=== PATIENT | female | born 1975 | race Caucasian/White ===

== ENCOUNTER 2017-04-10 07:47 | Emergency (ER) | payer BC ==
[2017-04-10 07:56] VITALS: BP 144/70; BMI 38.0
--- NOTE | 2017-04-10 08:32 | DR.GENAD ---
HPI - PCP Primary Care Physician: nfd - HPI Comment HPI Comment: No hx trauma or overuse, pt feels symptoms as 'pressure' just left of midline in upper lumbar area - Complaint/Symptoms Chief Complaint:: PT C/O LEFT MID BACK PAIN AND " IT FEELS LIKE SOMETHING IS GROWING AND NORMAL MOVEMENTS AND I HAVE A PRESSURE LIKE PAIN".. Self Treatment fo Chief Complaint: TYLENOL, MOTRIN - Source History Provided: Patient - Mode of Arrival Mode of Arrival: Ambulatory - Timing Onset of Chief Complaint: 04/08/17 PMH - PMH Past Medical History: No Past Medical History Comment: No hx back pain or injury Past Surgical History: Yes Past Surgical History Comment: TUBAL - Family History History of Family Medical Conditions: No - Social History Does patient currently use any type of tobacco product: No Have you used tobacco products in the last 12 months: No Type of Tobacco Use: None Does any household member use tobacco: No Alcohol Use: None Do you use any recreational Drugs:: No Lives With: Family Lives Where: Home - infectious screening In the last 2 months have you had wt loss of >10#?: NO Have you had fever, night sweats or hemotysis?: No Have you traveled outside the country in the last 6 months?: No Isolation: Standard ROS - Review of Systems Constitutional: No Symptoms Reported Eyes: No Symptoms Reported ENTM: No Symptoms Reported Respiratoy: No Symptoms Reported Cardiovascular: No Symptoms Reported Gastrointestinal/Abdominal: No Symptoms Reported Genitourinary: No Symptoms Reported. negative: See HPI, Discharge, Dysuria, Frequency, Hematuria, Pain, Bleeding, Other Neurological: negative: Tingling, Weakness, Problems Walking Musculoskeletal: See HPI, Back Pain PE - Vital Signs Vitals: Temperature 97.7 F Pulse Rate 84 Respiratory Rate 18 Blood Pressure 144/70 O2 Sat by Pulse Oximetry 99 - General Limitations: No Limitations General Appearance: Alert, In No Apparent Distress - Head Head Exam: Normal Inspection, Atraumatic - Eyes Eye exam: Normal Appearance - ENT ENT Exam: Normal Exam - Neck Neck Exam: Normal Inspection, Full ROM, Trachea Midline - Chest Chest Inspection: Normal Inspection, Symmetric Chest Wall Rise - Respiratory Respiratory Exam: Bilateral Clear to Auscultation - Cardiovascular Cardiovascular Exam: Regular Rate, Normal Rhythm - Abdominal Exam Abdominal Exam: Normal Bowel Sounds, Soft - Extremities Extremities Exam: Normal Inspection, Full ROM, Normal Capillary Refill. negative: Calf Tenderness - Back Back Exam: Normal Inspection, Full ROM, Paraspinal Tenderness. negative: Tenderness, (L) CVA Tenderness, Muscle Spasm, Vertebral Tenderness, Rashes, (R) Straight Leg Raise, (L) Straight Leg Raise - Neurologic Neurological Exam: Alert, Oriented X3, Normal Gait, Reflexes Normal. negative: Motor Sensory Deficit - Psychiatric Psychiatric Exam: Normal Affect, Normal Mood - Skin Skin Exam: Warm, Dry, Intact. negative: Rash Course - Treatment Treatment: Reviewed Xray findings with patient. Minimal Xrays done as patient quite concerned re: radiation exposure. Pt remains concerned that something's seriously wrong with her. Pt declines offered CT scan, fearful of addtl radiation today, states she'll come back for CT and asks what delay is appropriate for reimaging. I did tell her that CT today would be okay but she still wants to wait--I then told her 1 month should be more than enough time to avoid problems of repeated Xray exposure. Pt wants her kidneys 'checked out' and asks for UA which was ordered. ROR - Labs Reviewed Laboratory Results Reviewed?: Yes (UA with 1+ glucose, pt wants to check sugar at home, declines fingerstick h) Laboratory: Specimen Type Clean catch urine 04/10/17 09:50 Urine Color Yellow (YELLOW) 04/10/17 09:50 Urine Appearance Clear (CLEAR) 04/10/17 09:50 Urine pH 7.0 (5.0 - 8.0) 04/10/17 09:50 Ur Specific [place] 1.015 (1.000-1.030) 04/10/17 09:50 Urine Protein Negative (NEGATIVE) 04/10/17 09:50 Urine Glucose (UA) 1+ (NEGATIVE) 04/10/17 09:50 Urine Ketones Negative (NEGATIVE) 04/10/17 09:50 Urine Occult Blood Negative (NEGATIVE) 04/10/17 09:50 Urine Nitrite Negative (NEGATIVE) 04/10/17 09:50 Urine Bilirubin Negative (NEGATIVE) 04/10/17 09:50 Urine Urobilinogen Normal (NORMAL) 04/10/17 09:50 Ur Leukocyte Esterase 1+ (NEGATIVE) 04/10/17 09:50 Urine RBC None seen /HPF (NEGATIVE) 04/10/17 09:50 Urine WBC 0-1 /HPF (NEGATIVE) 04/10/17 09:50 Ur Squamous Epith Cells Few /HPF (NEGATIVE) 04/10/17 09:50 Urine Bacteria Negative /HPF (NEGATIVE) 04/10/17 09:50 Urine Yeast Rare /HPF (NEGATIVE) 04/10/17 09:50 Ur Culture Indicated? No/not indicated 04/10/17 09:50 - XRAY XRAY Interpreted by: Radiologist XRAY Findings: Nothing acute. 8mm Sclerotic density seen most likely benign - Diagnosis Discharge Problem: Back ache - Discharge Plan Disposition: HOME, SELF-CARE Condition: Stable Prescriptions: Diazepam [Valium] 2 mg PO BID #12 tablet - Follow ups/Referrals Follow ups/Referrals: [facility],None [Primary Care Provider] - 3 days - Instructions
--- NOTE | 2017-04-10 09:25 | RAD ---
Examination: Lumbar spine, three views History: Back pain Findings: AP and lateral views demonstrate essentially normal appearance of vertebrae, disc spaces, s acroiliac joints. Small marginal osteophytes are present at upper lumbar levels. There is a 8.0 mm sc lerotic density in the L4 vertebral body. Impression: No acute process identified. Minimal degenerative spondylosis. Sclerotic density in the l eft side of L4 vertebra is probably a benign osteoma or bone island. Osteoblastic lesion of other cyn ology is less likely in this young patient. Reported By:
[2017-04-10 10:00] LABS: BILIRUBIN,URINE NEGATIVE (NEGATIVE); BLOOD/HEMOGLOBIN,URINE NEGATIVE (NEGATIVE); GLUCOSE, URINE 1+ (NEGATIVE); KETONES,URINE NEGATIVE (NEGATIVE); LEUKOCYTE ESTERASE ,URINE 1+ (NEGATIVE); NITRITES,URINE NEGATIVE (NEGATIVE); PROTEIN,URINE NEGATIVE (NEGATIVE); UROBILINOGEN,URINE NORMAL (NORMAL)
[2017-04-10 10:12] LABS: APPEARANCE,URINE CLEAR (CLEAR); BACTERIA,URINE NEGATIVE /HPF (NEGATIVE); COLOR,URINE YELLOW (YELLOW); RBC,URINE NONE SEEN /HPF (NEGATIVE); SQUAMOUS EPITHELIAL CELL,UR FEW /HPF (NEGATIVE)
[2017-04-10 10:13] LABS: YEAST,URINE RARE /HPF (NEGATIVE)
== END 2017-04-10 10:50 | disposition home or self-care (01) ==
LOC: ER 08:02
DX: M54.89 Other dorsalgia (principal)
CPT/HCPCS: 72100; 81001; 99282